=== PATIENT | female | born 1960 | race Caucasian/White ===

== ENCOUNTER 2019-08-23 23:49 | Emergency (ER) | payer MEDICARE ==
--- NOTE | 2019-08-24 00:07 | ER Document Report ---
ED Medical Screen (RME) - General Chief Complaint: Fall Stated Complaint: CONFUSED/FALL Time Seen by Provider: 08/23/19 23:55 Mode of Arrival: Wheelchair Information source: Patient Notes: HPI; 59-year-old female presents emergency room with persistent dizziness and recurrent falls for the past 2 weeks. Patient was seen at [facility] last week negative work-up discharged home. States she had 2 additional falls today. Feels off balance when she walks. States she woke up around 915 this morning feeling lightheaded. Fell this evening while sitting in a chair denied head trauma head injury that time. Patient states while she was getting ready to come to the emergency room she got dizzy lightheaded fell forward hitting her face on the floor sustaining a laceration to the bridge of her nose. Denies loss of consciousness. However feels unsteady when she walks. PE: Alert and oriented x3. Mild distress noted. Negative fast exam I have greeted and performed a rapid initial assessment of this patient. A comprehensive ED assessment and evaluation of the patient, analysis of test results and completion of the medical decision making process will be conducted by additional ED providers. I have specifically instructed the patient or family members with the patient to immediately return to any nursing staff should anything change in the patient's condition or with their chief complaint. TRAVEL OUTSIDE OF THE [place] IN LAST 30 DAYS: No - Related Data Allergies/Adverse Reactions: levofloxacin [From Levaquin] Allergy (Verified 08/24/19 00:01) Penicillins Allergy (Verified 08/24/19 00:01) Physical Exam - Vital signs Vitals: Temp Pulse Resp BP Pulse Ox 98.6 F 65 18 147/70 H 95 08/23/19 23:56 08/23/19 23:56 08/23/19 23:56 08/23/19 23:56 08/23/19 23:56 Course - Vital Signs Vital signs: Temp Pulse Resp BP Pulse Ox 98.6 F 65 18 147/70 H 95 08/23/19 23:56 08/23/19 23:56 08/23/19 23:56 08/23/19 23:56 08/23/19 23:56
--- NOTE | 2019-08-24 00:41 | RADIOLOGY REPORT (SQ) ---
CLINICAL HISTORY: head trauma COMPARISON: None. TECHNIQUE: CT CERVICAL SPINE WITHOUT IV CONTRAST on 08/24/2019 12:01 AM CDT This exam was performed according to our departmental dose-optimization program, which includes automated exposure control, adjustment of the mA and/or kV according to patient size and/or use of iterative reconstruction technique. FINDINGS: There is no acute fracture. There is grade 1 anterolisthesis of C7 on T1. Extensive anterior fusion was performed from C3 to C7. There is mild diffuse facet arthritis. Disc spaces are maintained. Vertebral body heights are preserved. Soft tissues are unremarkable. IMPRESSION: Extensive postoperative changes without definite acute fracture.
--- NOTE | 2019-08-24 00:41 | RADIOLOGY REPORT (SQ) ---
EXAM DESCRIPTION: CT MAXILLOFACIAL WITHOUT IV CONTRAST COMPLETED DATE/TME: 08/24/2019 00:01 CLINICAL HISTORY: 59 years, Female, head trauma COMPARISON: None. TECHNIQUE: 121 Images stored on PACS. All CT scanners at this facility use dose modulation, iterative reconstruction, and/or weight based dosing when appropriate to reduce radiation dose to as low as reasonably achievable (ALARA). [facility]: Dose Right [facility]: CareDose [facility]: Dose Right [facility]: Teradose 4D [facility]: [employer] LIMITATIONS: None. FINDINGS: The globes are intact. The paranasal sinuses are well aerated. There are no air-fluid levels. No CT evidence for acute facial bone fracture IMPRESSION: Negative exam TECHNICAL DOCUMENTATION: Quality ID # [id number]: Final reports with documentation of one or more dose reduction techniques (e.g., Automated exposure control, adjustment of the mA and/or kV according to patient size, use of iterative reconstruction technique) copyright 2011 [employer]- All Rights Reserved
--- NOTE | 2019-08-24 00:41 | RADIOLOGY REPORT (SQ) ---
EXAM DESCRIPTION: CT HEAD WITHOUT IV CONTRAST COMPLETED DATE/TME: 08/24/2019 00:01 CLINICAL HISTORY: head trauma COMPARISON: None available TECHNIQUE: Axial CT of the head obtained from the skull apex to the skull base without contrast. FINDINGS: No acute intracranial hemorrhage identified. No mass, mass effect, shift of the midline, abnormal extra-axial fluid collection or CT evidence of acute ischemic change identified. The ventricular system and sulcal spaces are not enlarged. Scattered areas of hypodensity throughout the supratentorial white matter are nonspecific and may be related to chronic small vessel ischemic change. The visualized paranasal sinuses and the mastoids are clear. No skull fracture identified. Visualized orbits and globes are unremarkable. Atherosclerotic calcification of the intracranial internal carotid arteries. IMPRESSION: 1. No acute intracranial abnormality by CT criteria. This exam was performed according to our departmental dose-optimization program, which includes automated exposure control, adjustment of the mA and/or kV according to patient size and/or use of iterative reconstruction technique.
[2019-08-24] MEDS ORDERED: NALOXONE HCL INJ/PF 0.4 MG/1 ML SDV IV ONE ×2 (01:00→02:54)
[2019-08-24 01:01] LABS: ABSOLUTE EOSINOPHILS # (AUTO) 0.2 10^3/uL (0.0-0.6); ABSOLUTE LYMPHOCYTES (AUTO) 2.2 10^3/uL (0.5-4.7); ABSOLUTE MONOCYTES (AUTO) 0.9 10^3/uL (0.1-1.4); ABSOLUTE NEUT (AUTO) 4.1 10^3/uL (1.7-8.2); BASOPHILS % (AUTO) 0.6 % (0-2); EOSINOPHILS % (AUTO) 3.3 % (0-6); HEMOGLOBIN 12.7 g/dL (12.0-15.5); LYMPHOCYTES % (AUTO) 29.7 % (13-45); MEAN CORPUSCULAR HEMOGLOBIN 34.2 pg (27.0-33.4); MEAN CORPUSCULAR HGB CONC 35.2 g/dL (32.0-36.0); MEAN CORPUSCULAR VOLUME 97 fl (80-97); PLATELET COUNT 189 10^3/uL (150-450); RED BLOOD COUNT 3.72 10^6/uL (3.72-5.28); RED CELL DISTRIBUTION WIDTH 13.4 % (11.5-14.0); SEGMENTED NEUTROPHILS % (AUTO) 54.4 % (42-78); TOTAL CELLS COUNTED % (AUTO) 100 %; WHITE BLOOD COUNT 7.5 10^3/uL (4.0-10.5)
--- NOTE | 2019-08-24 01:02 | ER Document Report ---
ED General - General Chief Complaint: Fall Stated Complaint: CONFUSED/FALL Time Seen by Provider: 08/23/19 23:55 Primary Care Provider: EMRE LONGORIA NP [Primary Care Provider] - Follow up as needed Mode of Arrival: Wheelchair Information source: Patient TRAVEL OUTSIDE OF THE [place] IN LAST 30 DAYS: No - HPI Onset: Other - over the last several weeks Onset/Duration: Gradual Quality of pain: Achy - in neck Severity: Moderate Pain Level: 3 Associated symptoms: Other - Dizziness, Weakness, Frequent Falls Exacerbated by: Denies Relieved by: Denies Similar symptoms previously: Yes Recently seen / treated by doctor: Yes - patient has been evaluated at [facility] for same recently Notes: 59 year old female with a history of Chronic Neck Pain on Fentanyl Patches and Percocet (she is followed at a Pain Clinic) here in the ER for dizziness and frequent falls. The patient was evaluated at [facility] for the same recently and had a negative work up there. The patient was apparently speaking and slurring her words with nursing staff. When I entered the patient's room she was unresponsive with pin point pupils. Narcan 0.4mg immediately given and the patient woke up. The patient told me she didnt realize that the pain medications she is taking were likely causing her dizziness and frequent falls. The patient has no real pains from her falls (just minor cut over her nose). - Related Data Allergies/Adverse Reactions: levofloxacin [From Levaquin] Allergy (Verified 08/24/19 00:01) Penicillins Allergy (Verified 08/24/19 00:01) Past Medical History - General Information source: Patient - Social History Smoking Status: Current Every Day Smoker Drug Abuse: None Family History: Reviewed & Not Pertinent Patient has suicidal ideation: No Patient has homicidal ideation: No Musculoskeletal Medical History: Reports Other - Chronic Neck Pain Review of Systems - Review of Systems Constitutional: No symptoms reported EENT: Other - minor laceration to bridge of nose Cardiovascular: No symptoms reported Respiratory: No symptoms reported Gastrointestinal: No symptoms reported Genitourinary: No symptoms reported Female Genitourinary: No symptoms reported Musculoskeletal: No symptoms reported Skin: No symptoms reported Hematologic/Lymphatic: No symptoms reported Neurological/Psychological: Other - Dizziness, Freqent falls -: Yes All other systems reviewed and negative Physical Exam - Vital signs Vitals: Temp Pulse Resp BP Pulse Ox 98.6 F 65 18 147/70 H 95 08/23/19 23:56 08/23/19 23:56 08/23/19 23:56 08/23/19 23:56 08/23/19 23:56 - Notes Notes: GENERAL: Unresponsive, snoring HEAD: Atraumatic, normocephalic. EYES: Pin point pupils, sclera anicteric, conjunctiva are normal. ENT: Minor laceration to bridge of nose, External Ears normal, nares patent, oropharynx clear without exudates. Moist mucous membranes. NECK: Normal range of motion, supple without lymphadenopathy or JVD. LUNGS: Breath sounds clear to auscultation bilaterally and equal. No wheezes rales or rhonchi. HEART: Regular rate and rhythm without murmurs, rubs or gallops. ABDOMEN: Soft, nontender, normoactive bowel sounds. No guarding, no rebound. No masses appreciated. EXTREMITIES: Normal range of motion, no pitting or edema. No clubbing or cyanosis. NEUROLOGICAL: Cranial nerves II through XII grossly intact. Normal speech, normal gait. PSYCH: Normal mood, normal affect. SKIN: Warm, Dry, normal turgor, no rashes or lesions noted. Course - Re-evaluation Re-evalutation: 08/24/19 01:23 The patient needed Narcan to wake up in the ER 3 different times. The patient is clearly on too much pain medications. She had a Fentanyl Patch at her belt line which I removed. Patient's lab work, CT head, CT Face, CT Neck are all unremarkable. I spoke with the ICU Mid Level Provider about possibly accepting the patient to the ICU for Narcan drip. ICU requested that more observation in the ER be done to see if further Narcan doses or a drip are needed. 08/24/19 05:25 The patient was able to be awoken from sleep easily after her third dose of Narcan and for several hours after the 3rd dose. Patient was initially going to be admitted but since I found and removed the Fentanyl patch, this is the likely reason she rebounded into an opiate overdose. Patient's friend who came to the ER with her promisd me she would lock up the patient's pain medications until a reasonable pain medication plan was put in place. 08/24/19 05:27 Critical care time was spent treating patient and reassessing her several times due to an opiate overdose, speaking with her friend, working with nursing staff in the ER, and speaking with an ICU consult. - Vital Signs Vital signs: Temp Pulse Resp BP Pulse Ox 98.6 F 65 12 139/77 H 96 08/23/19 23:56 08/23/19 23:56 08/24/19 05:00 08/24/19 05:01 08/24/19 05:01 - Laboratory Result Diagrams: 08/24/19 00:36 08/24/19 00:36 Laboratory results interpreted by me: 08/24/19 08/24/19 08/24/19 00:36 00:36 02:21 [facility] 34.2 H Sodium 131.1 L Glucose 122 H Urine Blood SMALL H - Diagnostic Test Radiology reviewed: Image reviewed, Reports reviewed - EKG Interpretation by Me EKG shows normal: Sinus rhythm, [place], Intervals, QRS Complexes, ST-T Waves Rate: Normal Rhythm: NSR Critical Care Note - Critical Care Note Total time excluding time spent on procedures (mins): 35 Discharge - Discharge Clinical Impression: Opiate overdose Qualifiers: Encounter type: initial encounter Injury intent: accidental or unintentional Qualified Code(s): T40.601A - Poisoning by unspecified narcotics, accidental (unintentional), initial encounter Condition: Stable Disposition: HOME, SELF-CARE Instructions: Instructions for Home Care Following a Drug Overdose ([facility]), Overdose ([facility]) Additional Instructions: Follow up with your Pain Clinic and discuss your pain medication plan considering you had to be given Narcan several times during your ER stay. Consider alternatives to opiate medications for pain relief such as Motrin, Tylenol, Heating Pads, Injections. Referrals: EMRE LONGORIA NP [Primary Care Provider] - Follow up as needed
[2019-08-24 01:03] LABS: ALBUMIN 4.6 g/dL (3.5-5.0); ALKALINE PHOSPHATASE 121 U/L (38-126); ANION GAP 6 (5-19); ASPARTATE AMINO TRANSFERASE 31 U/L (14-36); BILIRUBIN,DIRECT 0.1 mg/dL (0.0-0.4); BILIRUBIN,TOTAL 0.4 mg/dL (0.2-1.3); BLOOD UREA NITROGEN 10 mg/dL (7-20); CALCIUM 9.4 mg/dL (8.4-10.2); CARBON DIOXIDE 27 mmol/L (22-30); CHLORIDE 98 mmol/L (98-107); GLUCOSE 122 mg/dL (75-110); POTASSIUM 4.2 mmol/L (3.6-5.0); TOTAL PROTEIN 7.1 g/dL (6.3-8.2)
[2019-08-24] MEDS ORDERED: NALOXONE HCL INJ/PF 0.4 MG/1 ML SDV ONE (02:00)
[2019-08-24 02:48] LABS: APPEARANCE,URINE CLEAR; BILIRUBIN,URINE NEGATIVE (NEGATIVE); COLOR,URINE YELLOW; GLUCOSE, URINE NEGATIVE (NEGATIVE); KETONES,URINE NEGATIVE (NEGATIVE); LEUKOCYTE ESTERASE,URINE NEGATIVE (NEGATIVE); NITRITE,URINE NEGATIVE (NEGATIVE); PROTEIN,URINE NEGATIVE (NEGATIVE); URINE SPECIFIC GRAVITY 1.008; UROBILINOGEN,URINE NEGATIVE mg/dL (<2.0)
[2019-08-24 03:03] LABS: URINE AMPHETAMINES SCREEN NEGATIVE; URINE BARBITURATES SCREEN NEGATIVE; URINE BENZODIAZEPINES SCREEN NEGATIVE; URINE COCAINE SCREEN NEGATIVE; URINE MARIJUANA (THC) SCREEN NEGATIVE; URINE METHADONE SCREEN NEGATIVE; URINE PHENCYCLIDINE SCREEN NEGATIVE
[2019-08-24 05:56] VITALS: BP 165/87
--- NOTE | 2019-08-24 13:10 | EKG REPORT ---
SEVERITY:- ABNORMAL ECG - SINUS RHYTHM PROBABLE ANTEROSEPTAL INFARCT, AGE INDETERM : Confirmed by: Ezio Pacheco 24-Aug-2019 13:09:59
== END 2019-08-24 06:26 | disposition home or self-care (01) ==
LOC: ER 23:49
DX: T40.601A Poisoning by unspecified narcotics, accidental (unintentional), initial encounter (principal); R42 Dizziness and giddiness; R29.6 Repeated falls; R53.1 Weakness; S01.21XA Laceration without foreign body of nose, initial encounter; W19.XXXA Unspecified fall, initial encounter; M54.2 Cervicalgia; G89.29 Other chronic pain; Z79.891 Long term (current) use of opiate analgesic; F17.200 Nicotine dependence, unspecified, uncomplicated; Z88.0 Allergy status to penicillin; Z88.1 Allergy status to other antibiotic agents
CPT/HCPCS: 93005; 96376; 99291; 96374; 36415; 80307 ×2; 83735; 85025; 80053; 81001; 84484; 70450; 70486; 72125; 93010; J2310